=== PATIENT | male | born 1985 | race Caucasian/White ===

== ENCOUNTER 2017-08-13 10:40 | Emergency (ER) | payer MEDICAID, SELFPAY ==
[2017-08-13] VITALS (12 sets, daily range): BP systolic 100–138; BP diastolic 60–80; PULSE 73–121; RESP 14–20; TEMP 36.6; O2SAT 94–99; BMI 24.3
--- NOTE | 2017-08-13 11:00 | ED.RN ---
pt unsure of all medications to be taking. states has not been taking meds. recently out of [facility]
--- NOTE | 2017-08-13 11:05 | EKG12_ITS ---
Test Reason : MEDICAL CLEARANCE Blood Pressure : / mmHG Vent. Rate : 108 BPM Atrial Rate : 108 BPM P-R Int : 138 ms QRS Dur : 090 ms QT Int : 334 ms P-R-T Axes : 049 061 036 degrees QTc Int : 447 ms Sinus tachycardia Otherwise normal ECG Confirmed by ANITA PATRICK, FANNY ([id number]), science editor VLADIMIR FAGAN ([id number] on 08/17/2017 3:47:24 PM Referred By: OXANA Confirmed By:FANNY HOWARD MD
[2017-08-13 11:31] LABS: ALB/GLOB Ratio 0.9 RATIO (0.9-2.4); AST(SGOT) 165 U/L (15-37); Alanine Aminotransfer ALT/SGPT 150 U/L (16-61); Albumin, Serum 4.2 g/dL (3.2-5.0); Alkaline Phosphatase 86 U/L (45-117); Anion Gap 10 (5-15); BUN 42 mg/dL (7-18); BUN/Creat Ratio 27.8 RATIO (10-20); Calcium,Total 8.4 mg/dL (8.5-10.1); Chloride 96 mmol/L (98-107); Creatinine, Serum 1.51 mg/dL (0.70-1.30); EST Glomerular Filtration Rate 57 mL/min (>60); Est Glom Filt Rate - Afr Amer 69 mL/min (>60); Estimated Creatinine Clearance 72.52 ml/min; Globulin 4.5 g/dL (2.2-4.2); Glucose 99 mg/dL (74-106); Protein, Total 8.7 g/dL (6.4-8.2); Sodium Level 133 mmol/L (136-145)
[2017-08-13 11:42] LABS: Valproic Acid (Depakene) Level 29 ug/mL (50-100)
[2017-08-13] MEDS: Ziprasidone IM 20 MG/ML VIAL 10 MG IM ×2 (11:45→20:17)
--- NOTE | 2017-08-13 11:58 | ED.VISSUMM ---
- ER Visit Summary Date of Service: 08/13/17 Chief Complaint: Suicidal homicidal ideation History of Present Illness: The patient is a 32 M who presents via EMS with complaint of feeling suicidal. Patient states that 4 days ago he was discharged from [facility]. He states that nobody addressed his drug abuse. He decided to come to [place] where has been for 4 days. His time here he states he has been using methamphetamines and today used marijuana. The patient states that he is not taking his medications that were prescribed to him and he does not really know what all they are. He states that he is tried to kill himself in the past and that is what he was hospitalized for most recently. He states that if he is discharged he will kill himself or someone else. He states he feels very paranoid and is not sure that he should be here because he feels that people are laughing at him. Physical Examination: Afebrile vital signs are stable noted tachycardia at 121 Gen: Well-nourished well-developed Head: Normocephalic atraumatic Eyes: Perrl EOMI ENT: TMs clear no rhinorrhea moist mucous membranes Neck: Supple no lymphadenopathy no JVD nontender CVS: Regular rate tachycardia rhythm no murmurs normal S1-S2 Respiratory: No distress clear to auscultation bilaterally chest nontender Abdomen: Soft nontender nondistended normal bowel sounds no masses Back: Nontender Extremity: Nontender no edema Skin: Normal color no rash Neuro: alert orientated ?3 CN II-XII intact normal strength sensation reflexes gait cerebellar Psych: Patient is paranoid. Patient is hyper alert. Patient has showed speech. Test Results: EKG shows a sinus tachycardia at a rate of [address] segments. Emergency Department Course and Treatment: He was initially offered something to help him relax with declined does not wish to go sleep. He later recants and states that he would like something to help him relax. He was given 10 mg of Geodon IM. I suspect the patient is coming down off of methamphetamines. He has been sleeping. Crisis has come to see him but it was difficult to get him to wake. Crisis will come back and evaluate him when he is more awake. Impression: 1. Suicidal ideation 2. Methamphetamine abuse This note was generated with [employer] software. It may contain incorrect words, spelling, and punctuation that were not noted in review of the chart prior to signing <Jayce Salmeron - Last Filed: 08/13/17 15:27> - ER Visit Summary Date of Service: 08/13/17 Chief Complaint: [] History of Present Illness: The patient is a 32 M [] Physical Examination: [] Test Results: [] Emergency Department Course and Treatment: Care of the patient was turned over to me. Crisis was in to evaluate the patient and feels that patient would benefit from admission to a state psychiatric facility. However, they are unable to obtain information from his home county until tomorrow morning. Patient began feeling more anxious and agitated. Patient was given a repeat dose of Geodon here. Patient will be monitored in the emergency department until tomorrow morning. Patient understands and is agreeable with the plan. Treatment Plan: [] Disposition: [] Impression: [] This note was generated with [employer] dictation software. It may contain incorrect words, spelling, and punctuation that were not noted in review of the chart prior to signing <Lucien Chase - Last Filed: 08/13/17 21:00> ED Disposition <Jayce Salmeron - Last Filed: 08/13/17 15:27> <Lucien Chase - Last Filed: 08/13/17 21:00> - Plan for ED Patient: Chief Complaint: Mental Health Referrals: Care Physician,No Primary [Primary Care Provider] -
[2017-08-13 12:01] LABS: Basophil# 0.04 X10^3/uL; Basophil% 0.3 % (0-1); Eosinophil# 0.14 X10^3/uL; Eosinophils% 1.2 % (0-5); Hematocrit 40.3 % (40-54); Hemoglobin 14.2 g/dl (13.0-16.5); Lymphocyte % 29.7 % (19-41); Mean Corp Hgb Conc 35.2 g/gl (32-36); Mean Corpuscular Hgb 31.4 pg (27.0-32.0); Mean Corpuscular Volume 89.2 fL (80-94); Mean Platelet Vol. 9.8 fl (6.2-12.0); Monocyte# 2.05 X10^3/uL; Monocyte% 17.4 % (0-10); Neutrophil # 5.98 X10^3/uL (2.7-7.7); Neutrophil % 50.9 % (47-70); Platelet Count 353 K/mm3 (150-450); RBC Distribution Width CV 13.6 % (11.6-14.6); Red Blood Count 4.52 M/mm3 (4.6-6.2); White Blood Count 11.8 K/mm3 (4.4-11.0)
--- NOTE | 2017-08-13 12:01 | ED.DCSUM_ITS ---
- ER Visit Summary Date of Service: 08/13/17 Chief Complaint: Suicidal homicidal ideation History of Present Illness: The patient is a 32 M who presents via EMS with complaint of feeling suicidal. Patient states that 4 days ago he was discharged from [facility]. He states that nobody addressed his drug abuse. He decided to come to [place] where has been for 4 days. His time here he states he has been using methamphetamines and today used marijuana. The patient states that he is not taking his medications that were prescribed to him and he does not really know what all they are. He states that he is tried to kill himself in the past and that is what he was hospitalized for most recently. He states that if he is discharged he will kill himself or someone else. He states he feels very paranoid and is not sure that he should be here because he feels that people are laughing at him. Physical Examination: Afebrile vital signs are stable noted tachycardia at 121 Gen: Well-nourished well-developed Head: Normocephalic atraumatic Eyes: Perrl EOMI ENT: TMs clear no rhinorrhea moist mucous membranes Neck: Supple no lymphadenopathy no JVD nontender CVS: Regular rate tachycardia rhythm no murmurs normal S1-S2 Respiratory: No distress clear to auscultation bilaterally chest nontender Abdomen: Soft nontender nondistended normal bowel sounds no masses Back: Nontender Extremity: Nontender no edema Skin: Normal color no rash Neuro: alert orientated ?3 CN II-XII intact normal strength sensation reflexes gait cerebellar Psych: Patient is paranoid. Patient is hyper alert. Patient has showed speech. Test Results: EKG shows a sinus tachycardia at a rate of [address] segments. Emergency Department Course and Treatment: He was initially offered something to help him relax with declined does not wish to go sleep. He later recants and states that he would like something to help him relax. He was given 10 mg of Geodon IM. I suspect the patient is coming down off of methamphetamines. He has been sleeping. Crisis has come to see him but it was difficult to get him to wake. Crisis will come back and evaluate him when he is more awake. Impression: 1. Suicidal ideation 2. Methamphetamine abuse This note was generated with [employer] software. It may contain incorrect words, spelling, and punctuation that were not noted in review of the chart prior to signing <Jayce Salmeron - Last Filed: 08/13/17 15:27> - ER Visit Summary Date of Service: 08/13/17 Chief Complaint: [] History of Present Illness: The patient is a 32 M [] Physical Examination: [] Test Results: [] Emergency Department Course and Treatment: Care of the patient was turned over to me. Crisis was in to evaluate the patient and feels that patient would benefit from admission to a state psychiatric facility. However, they are unable to obtain information from his home county until tomorrow morning. Patient began feeling more anxious and agitated. Patient was given a repeat dose of Geodon here. Patient will be monitored in the emergency department until tomorrow morning. Patient understands and is agreeable with the plan. Treatment Plan: [] Disposition: [] Impression: [] This note was generated with [employer] dictation software. It may contain incorrect words, spelling, and punctuation that were not noted in review of the chart prior to signing <Lucien Chase - Last Filed: 08/13/17 21:00> ED Disposition <Jayce Salmeron - Last Filed: 08/13/17 15:27> <Lucien Chase - Last Filed: 08/13/17 21:00> - Plan for ED Patient: Chief Complaint: Mental Health Referrals: Care Physician,No Primary [Primary Care Provider] -
[2017-08-13 12:02] LABS: Differential Indicated SCAN CRITERIA MET; POSITIVE COUNT NO; POSITIVE DIFFERENTIAL YES; POSITIVE MORPHOLOGY YES
[2017-08-13 12:15] LABS: Amphetamine Urine VISTA POSITIVE (<1000 ng/mL); Barbiturate Urine VISTA NEGATIVE (< 200 ng/mL); Benzodiazepine Urine VISTA NEGATIVE (< 200 ng/mL); Cocaine Urine VISTA NEGATIVE (< 300 ng/mL); Ecstacy Urine VISTA POSITIVE (< 500 ng/mL); Methadone Urine VISTA NEGATIVE (< 300 ng/mL); PCP Urine VISTA NEGATIVE (< 25 ng/mL); THC Urine VISTA POSITIVE (< 50 ng/mL); Vista UDS pH Range 5
--- NOTE | 2017-08-13 12:30 | ED.RN ---
KEYSHAWN FROM [facility] IS HERE EVALUATING ANOTHER PT. KEYSHAWN WAS INFORMED THAT PT NEEDS TO BE SEEN WELL.
--- NOTE | 2017-08-13 14:28 | NURSING ---
KEYSHAWN, CRISIS, HERE FOR PATIENT
[2017-08-13] MEDS: LORazepam 1 MG Tablet PO (19:16)
[2017-08-13] MEDS: Naproxen 250 MG Tablet 500 MG PO (19:34)
[2017-08-14] VITALS (12 sets, daily range): BP systolic 108–140; BP diastolic 64–87; PULSE 62–90; RESP 14–16; O2SAT 98–99
[2017-08-14] MEDS: Naproxen 500 MG Tablet PO (06:45)
[2017-08-14] MEDS: clonazePAM 1 MG Tablet PO (07:24)
[2017-08-14] MEDS: Ziprasidone IM 20 MG/ML VIAL 10 MG IM ×2 (08:56→13:17)
[2017-08-14] MEDS: Lisinopril 5 MG Tablet PO (13:17)
[2017-08-14 13:31] LABS: Pathologist Review Reviewed
[2017-08-14] MEDS: Acetaminophen 500 MG Tablet 1000 MG PO (14:57)
[2017-08-14] MEDS: LORazepam 2 MG/ML Syringe IM (15:29)
== END 2017-08-14 16:44 ==
PROVIDERS: Emergency Provider Emergency Medicine
DX: R45.851 Suicidal ideations (principal); F15.10 Other stimulant abuse, uncomplicated; Z79.899 Other long term (current) drug therapy
CPT/HCPCS: 36415; 80053; 80164; 80307; 80320; 85025; 93005; 96372; 99283; A4216; G0480; J3486